=== PATIENT | female | born 1950 | race American Indian/Alaskan Native ===

== ENCOUNTER → 2016-04-02 | Outpatient (CLI) | payer MEDICARE, OTHER ==
--- NOTE | 2016-04-02 10:14 | CR ---
EXAMINATION: Right knee HISTORY: Artificial joint COMPARISON: 09/18/2015 TECHNIQUE: 3 views FINDINGS/IMPRESSION: Right total knee hardware is demonstrated in stable position and alignment. No fracture or acute osseous abnormality. No joint effusion.
== END | disposition home or self-care (01) ==
LOC: MW.CHORTHO 07:57
PROVIDERS: ATTEND Orthopaedic Surgery
DX: Z47.1 Aftercare following joint replacement surgery (principal); Z96.651 Presence of right artificial knee joint
CPT/HCPCS: 73562; G0463

== ENCOUNTER → 2016-06-04 | Outpatient (CLI) | payer MEDICARE, OTHER ==
--- NOTE | 2016-06-04 15:15 | US ---
EXAMINATION: Carotid US with newman scale and duplex imaging. HISTORY: Obstruction FINDINGS: Ultrasound examination of bilateral cervical carotid arteries was performed using newman scale and dup riky imaging. There are scattered atheromatous plaque noted within the carotid arteries bilaterally, most prominent at the right bulb. Antegrade flow is noted within the vertebrals.. These are the peak velocities in cm per second (systole), right and left respectively, by a comma: CCA (common carotid artery) - 83, 94 ICA (internal carotid artery) - 141, 99 ECA (External carotid artery) - 152, 123 ICA/CCA systolic ratio Right - 1.4 Left - 1.1 IMPRESSION: 1. There is approximately 50-69% stenosis within the proximal right ICA. 2. There is less than 50% stenosis within the left internal carotid artery.
== END ==
LOC: MW.US 09:53
PROVIDERS: ATTEND Family Medicine
DX: I65.23 Occlusion and stenosis of bilateral carotid arteries (principal)
CPT/HCPCS: 93880; 93880-26

== ENCOUNTER 2016-07-17 10:16 | Observation (INO) | payer MEDICARE, OTHER ==
[2016-07-17] MEDS ORDERED: Aspirin 81 MG Tab.Chew PO ONE (10:27)
[2016-07-17] MEDS ORDERED: Famotidine 20 MG/2 ML SDV IVPUSH ONE (10:27)
[2016-07-17] MEDS ORDERED: Sodium Chloride 0.9% 10 ML Syringe FLUSH PRN (10:27)
[2016-07-17] MEDS ORDERED: Sodium Chloride 0.9% 2.5 ML Syringe FLUSH PRN (10:27)
[2016-07-17] MEDS ORDERED: Ketorolac 30 MG/ML SDV IVPUSH ONE (10:27)
[2016-07-17] MEDS ORDERED: Alum Hydrox/Mag Hydrox/Simeth 15 ML, Metoclopramide 5 MG, Lidocaine 2% 5 ML PO ONE ×3 (10:27)
--- NOTE | 2016-07-17 10:52 | EDM.PDOC ---
ED HPI GENERAL MEDICAL PROBLEM - General Chief Complaint: Cardiovascular Problem Stated Complaint: DIPHRESES Time Seen by Provider: 07/17/16 10:25 Source of Information: Reports: Patient History Limitations: Reports: No Limitations - History of Present Illness INITIAL COMMENTS - FREE TEXT/NARRATIVE: History of present illness: [65-year-old female presenting with acute onset of dizziness, diaphoresis, and general feelings of lightheadedness. Patient denies any exertion indicates she was only taking grandchild and for his immunizations when the sensation over came her and she felt she needed to be evaluated.] Review of systems: As per history of present illness and below otherwise all systems reviewed and negative. Past medical history: As per history of present illness and as reviewed below otherwise noncontributory. Surgical history: As per history of present illness and as reviewed below otherwise noncontributory. Social history: No reported history of drug or alcohol abuse. Family history: As per history of present illness and as reviewed below otherwise noncontributory. Physical exam: HEENT: Atraumatic, normocephalic, pupils reactive, negative for conjunctival pallor or scleral icterus, mucous membranes moist, throat clear, neck supple, nontender, trachea midline. Lungs: Clear to auscultation, breath sounds equal bilaterally, chest nontender. Heart: S1S2, regular, negative for clicks, rubs, or JVD. Abdomen: Soft, nondistended, nontender. Negative for masses or hepatosplenomegaly. Negative for costovertebral tenderness. Pelvis: Stable nontender. Genitourinary: Deferred. Rectal: Deferred. Extremities: Atraumatic, negative for cords or calf pain. Neurovascular unremarkable. Neuro: Awake, alert, oriented. Cranial nerves II through XII unremarkable. Cerebellum unremarkable. Motor and sensory unremarkable throughout. Exam nonfocal. Upon exam patient resting quietly in bed. Patient is no longer pale and/or diaphoretic she indicates that she feels much better now but she still is concerned about what has transpired that would make her feel this way. Patient has an old carotid ultrasound on file shows that she had 50-60% stenosis of the right ICA with less than 50% on the left ICA CTA of chest negative, CT of head negative Will admit to observation status with telemetry Diagnostics: [CBC, CMP, troponin, EKG, chest x-ray] Therapeutics: [IV lock] Impression: [Dizziness, diaphoresis] Plan: [Admit observation] Definitive disposition and diagnosis as appropriate pending reevaluation and review of above. - Related Data Allergies Allergy/AdvReac Type Severity Reaction Status Date / Time griseofulvin Allergy Cannot Verified 07/17/16 10:25 Remember ibuprofen Allergy causes Verified 07/17/16 10:25 gastric ulcers ramipril Allergy Cough Verified 07/17/16 10:25 Home Meds: Home Meds Ezetimibe/Simvastatin [Vytorin 10-40 mg Tablet] 1 each PO BEDTIME 09/12/13 [ History] FLUoxetine HCl [Fluoxetine HCl] 20 mg PO Q2D 09/12/13 [History] Hydrochlorothiazide 25 mg PO DAILY 09/12/13 [History] Ondansetron [Zofran ODT] 4 mg PO Q8HR PRN 09/12/13 [History] Telmisartan [Micardis] 80 mg PO DAILY 09/12/13 [History] Travoprost (Benzalkonium) [Travoprost 0.004% Eye Drop] 1 drop EYEBOTH BEDTIME [History] RABEprazole Sodium [Aciphex] 20 mg PO DAILY 03/28/15 [History] Gabapentin [Neurontin] 300 mg PO BEDTIME #45 cap 04/03/15 [Rx] Aspirin 81 mg PO DAILY 07/17/16 [History] Past Medical History HEENT History: Reports: Glaucoma, Impaired Vision Cardiovascular History: Reports: High Cholesterol, Hypertension Respiratory History: Reports: None Gastrointestinal History: Reports: GERD Other Gastrointestinal History: gastric ulcers caused from NSAIDS, had a blood transfusion from a bleeding ulcer. gerd-controlled. 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 Neurological History: Reports: None Psychiatric History: Reports: Depression Endocrine/Metabolic History: Reports: Obesity/BMI 30+ Hematologic History: Reports: Anemia, Blood Transfusion(s) Immunologic History: Reports: None Oncologic (Cancer) History: Reports: None Dermatologic History: Reports: None - Infectious Disease History Infectious Disease History: Reports: Chicken Pox - Past Surgical History Head Surgeries/Procedures: Reports: None Musculoskeletal Surgical History: Reports: Other (See Below) Social & Family History - Family History Family Medical History: Noncontributory HEENT: Reports: Cataract, Glaucoma Endocrine/Metabolic: Reports: Diabetes, type II Oncologic: Reports: Other (See Below) Other Oncologic Family History: mouth - Tobacco Use Smoking Status *Q: Never Smoker - Caffeine Use Caffeine Use: Reports: None - Alcohol Use Days Per Week of Alcohol Use: 0 Number of Drinks Per Day: 0 Total Drinks Per Week: 0 - Recreational Drug Use Recreational Drug Use: No Drug Use in Last 12 Months: No ED ROS GENERAL - Review of Systems Review Of Systems: See Below (See history of present illness) ED EXAM, GENERAL - Physical Exam Exam: See Below (History of present illness) Course - Vital Signs Last Recorded V/S: Last Vital Signs Temp 35.9 C 07/17/16 10:22 Pulse 68 07/17/16 14:00 Resp 18 07/17/16 14:00 BP 150/87 H 07/17/16 14:00 Pulse Ox 98 07/17/16 14:00 - Orders/Labs/Meds Orders: Active Orders 24 hr Category Date Time Status Cardiac Monitoring [RC] . DIRECTED Care 07/17/16 10:27 Active EKG Documentation Completion [RC] STAT Care 07/17/16 10:27 Active UA W/MICROSCOPIC [URIN] Stat Lab 07/17/16 10:27 Uncollected Sodium Chloride 0.9% [Saline Flush] Med 07/17/16 10:27 Active 10 ml FLUSH ASDIRECTED PRN Sodium Chloride 0.9% [Saline Flush] Med 07/17/16 10:27 Active 2.5 ml FLUSH ASDIRECTED PRN Saline Lock Insert [OM.PC] Stat Oth 07/17/16 10:27 Ordered Medication Orders Sodium Chloride (Saline Flush) 10 ml FLUSH ASDIRECTED PRN PRN Reason: Keep Vein Open Last Admin: 07/17/16 10:49 Dose: 10 ml Sodium Chloride (Saline Flush) 2.5 ml FLUSH ASDIRECTED PRN PRN Reason: Keep Vein Open Last Admin: 07/17/16 10:48 Dose: 2.5 ml Labs: Laboratory Tests 07/17/16 07/17/16 07/17/16 Range/Units 10:20 10:20 10:20 WBC 7.03 (4.0-11.0) K/uL RBC 5.12 (4.30-5.90) M/uL Hgb 13.9 (12.0-16.0) g/dL Hct 41.2 (36.0-46.0) % MCV 80.5 (80.0-98.0) fL MCH 27.1 (27.0-32.0) pg MCHC 33.7 (31.0-37.0) g/dL RDW Std Deviation 44.2 (28.0-62.0) fl RDW Coeff of Jeff 15 (11.0-15.0) % Plt Count 296 (150-400) K/uL MPV 10.90 (7.40-12.00) fL Neut % (Auto) 61.1 (48.0-80.0) % Lymph % (Auto) 25.2 (16.0-40.0) % [place] % (Auto) 10.2 (0.0-15.0) % Eos % (Auto) 3.4 (0.0-7.0) % Baso % (Auto) 0.1 (0.0-1.5) % Neut # (Auto) 4.3 (1.4-5.7) K/uL Lymph # (Auto) 1.8 (0.6-2.4) K/uL [place] # (Auto) 0.7 (0.0-0.8) K/uL Eos # (Auto) 0.2 (0.0-0.7) K/uL Baso # (Auto) 0.0 (0.0-0.1) K/uL Nucleated RBC % 0.0 /100WBC Nucleated RBCs # 0 K/uL INR 1.00 (0.86-1.11) D-Dimer, Quantitative 0.62 H (0.0-0.52) mg/LFEU Sodium 141 (136-146) mmol/L Potassium 3.6 (3.5-5.1) mmol/L Chloride 110 (98-110) mmol/L Carbon Dioxide 19 L (21-31) mmol/L BUN 15 (6.0-23.0) mg/dL Creatinine 0.8 (0.6-1.5) mg/dL Est Cr Clr Drug Dosing 53.97 mL/min Estimated GFR (MDRD) > 60.0 ml/min Glucose 102 (60-110) mg/dL Calcium 9.2 (8.8-10.8) mg/dL Total Bilirubin 0.5 (0.1-1.5) mg/dL AST 24 (5-40) IU/L ALT 21 (8-54) IU/L Alkaline Phosphatase 99 (40-150) Troponin I (0.0-0.29) NG/ML Total Protein 7.2 (6.0-8.0) g/dL Albumin 4.5 (3.4-4.8) g/dL Globulin 2.7 (2.0-3.5) g/dL Albumin/Globulin Ratio 1.7 (1.3-2.8) Amylase 80 (10-90) U/L Lipase 34 (7-80) U/L 05// Range/Units 10:20 WBC (4.0-11.0) K/uL RBC (4.30-5.90) M/uL Hgb (12.0-16.0) g/dL Hct (36.0-46.0) % MCV (80.0-98.0) fL MCH (27.0-32.0) pg MCHC (31.0-37.0) g/dL RDW Std Deviation (28.0-62.0) fl RDW Coeff of Jeff (11.0-15.0) % Plt Count (150-400) K/uL MPV (7.40-12.00) fL Neut % (Auto) (48.0-80.0) % Lymph % (Auto) (16.0-40.0) % [place] % (Auto) (0.0-15.0) % Eos % (Auto) (0.0-7.0) % Baso % (Auto) (0.0-1.5) % Neut # (Auto) (1.4-5.7) K/uL Lymph # (Auto) (0.6-2.4) K/uL [place] # (Auto) (0.0-0.8) K/uL Eos # (Auto) (0.0-0.7) K/uL Baso # (Auto) (0.0-0.1) K/uL Nucleated RBC % /100WBC Nucleated RBCs # K/uL INR (0.86-1.11) D-Dimer, Quantitative (0.0-0.52) mg/LFEU Sodium (136-146) mmol/L Potassium (3.5-5.1) mmol/L Chloride (98-110) mmol/L Carbon Dioxide (21-31) mmol/L BUN (6.0-23.0) mg/dL Creatinine (0.6-1.5) mg/dL Est Cr Clr Drug Dosing mL/min Estimated GFR (MDRD) ml/min Glucose (60-110) mg/dL Calcium (8.8-10.8) mg/dL Total Bilirubin (0.1-1.5) mg/dL AST (5-40) IU/L ALT (8-54) IU/L Alkaline Phosphatase (40-150) Troponin I < 0.10 (0.0-0.29) NG/ML Total Protein (6.0-8.0) g/dL Albumin (3.4-4.8) g/dL Globulin (2.0-3.5) g/dL Albumin/Globulin Ratio (1.3-2.8) Amylase (10-90) U/L Lipase (7-80) U/L Meds: Medications Generic Name Dose Route Start Last Admin Trade Name Freq PRN Reason Stop Dose Admin Sodium Chloride 10 ml 07/17/16 10:07/17/16 10:49 Saline Flush FLUSH 10 ml ASDIRECTED PRN Administration Keep Vein Open Sodium Chloride 2.5 ml 07/17/16 10:07/17/16 10:48 Saline Flush FLUSH 2.5 ml ASDIRECTED PRN Administration Keep Vein Open Discontinued Medications Generic Name Dose Route Start Last Admin Trade Name Freq PRN Reason Stop Dose Admin Aspirin 324 mg 07/17/16 10:07/17/16 10:46 Aspirin PO 07/17/16 10:28 324 mg ONETIME ONE Administration Al Hydroxide/Mg Hydroxide 15 0 ml 07/17/16 10:07/17/16 10:46 ml/ Metoclopramide HCl 5 mg/ PO 07/17/16 10:28 1 each Lidocaine HCl 5 ml ONETIME ONE Administration Famotidine 20 mg 07/17/16 10:07/17/16 10:46 Pepcid IVPUSH 07/17/16 10:28 20 mg ONETIME ONE Administration Ketorolac Tromethamine 30 mg 07/17/16 10:07/17/16 10:52 Toradol IVPUSH 07/17/16 10:28 Not Given ONETIME ONE Departure - Departure Time of Disposition: 15:29 Disposition: Admitted As Inpatient 64 Condition: good Clinical Impression: Diaphoresis, Dizziness Forms: ED Department Discharge - My Orders Last 24 Hours: My Active Orders 07/17/16 10:27 Cardiac Monitoring [RC] . DIRECTED EKG Documentation Completion [RC] STAT UA W/MICROSCOPIC [URIN] Stat Sodium Chloride 0.9% [Saline Flush] 10 ml FLUSH ASDIRECTED PRN Sodium Chloride 0.9% [Saline Flush] 2.5 ml FLUSH ASDIRECTED PRN Saline Lock Insert [OM.PC] Stat - Assessment/Plan Last 24 Hours: My Active Orders 07/17/16 10:27 Cardiac Monitoring [RC] . DIRECTED EKG Documentation Completion [RC] STAT UA W/MICROSCOPIC [URIN] Stat Sodium Chloride 0.9% [Saline Flush] 10 ml FLUSH ASDIRECTED PRN Sodium Chloride 0.9% [Saline Flush] 2.5 ml FLUSH ASDIRECTED PRN Saline Lock Insert [OM.PC] Stat
--- NOTE | 2016-07-17 11:13 | CR ---
EXAMINATION: Two-view chest (PA and Lateral views). HISTORY: Chest pain. FINDINGS: The trachea is midline. The cardiomediastinal silhouette is within normal limits. No pulmonary infil trates, effusions or pneumothorax. Osseous structures appear unremarkable. IMPRESSION: No acute cardiopulmonary process.
[2016-07-17 11:16] LABS: CHLORIDE,CL 110 mmol/L (98-110); SODIUM,NA 141 mmol/L (136-146)
--- NOTE | 2016-07-17 14:15 | CT ---
EXAMINATION: CTA chest HISTORY: Syncope COMPARISON: Radiographs from the same day TECHNIQUE: Axial CT images obtained through the chest following the administration of 50 mL of Isovu e-370 in the right forearm. Coronal and sagittal reconstructions obtained. FINDINGS: The lungs are clear without focal consolidation. No pleural effusion or pneumothorax. The heart is normal in size without a pericardial effusion. Coronary artery calcifications are noted. Th e thoracic aorta is normal in caliber. The main and central pulmonary arteries are patent. No pulmon louis embolism identified. No mediastinal or hilar lymphadenopathy. There is a small to moderate hiata l hernia. No axillary lymphadenopathy. The visualized images of the upper abdomen appear unremarkabl e. No suspicious osseous abnormalities identified. IMPRESSION: 1. No acute cardiopulmonary findings. 2. Small to moderate hiatal hernia.
--- NOTE | 2016-07-17 15:16 | CT ---
EXAMINATION: Non contrast CT head. Coronal and sagittal reformats. HISTORY: Syncope FINDINGS: No evidence of intra or extra axial hemorrhage, mass, midline shift, hydrocephalus or edema. No hypoattenuation changes in the major vascular territories to suggest acute infarct. No abnormal intracranial calcifications are detected. No evidence of substantial vascular calcifica tions. Paranasal sinuses and mastoid air cells are well aerated without substantial findings. Orbits and g lobes are symmetric. Pituitary fossa appears unremarkable. Calvarium is intact. No evidence of skull fracture. IMPRESSION: No acute intracranial findings.
[2016-07-17] MEDS ORDERED: Acetaminophen 325 MG Tab PO PRN (17:49)
--- NOTE | 2016-07-17 18:55 | PCM.HP ---
H&P History of Present Illness - General Date of Service: 07/17/16 Admit Problem/Dx: Dizziness, Lightheadedness - History of Present Illness Initial Comments - Free Text/Narative: 65 yo fm with history of HTN, Hypercholesterolemia OA of Knees and bleeding ulcer requiring transfusion in 1999 was admitted to observation for episode of dizziness. Episode occurred earlier today while she was taking her grandson to our hospital clinic for shots. She was walking in the hallway and felt dizzy and lightheaded like she was about to pass out. She grabbed onto her grandson for support and then sat down in a chair. The dizziness resolved after about 15 minutes and patient felt much better but clinic staff recommended she be taken to the ED for further evaluation. Patient states that this is the first time she had ever had this happen to her. She normally takes HCTZ and Telmisartan for HTN but she forgot to take them this morning. She denied any chest pain or shortness of breath during or after the dizziness. She has not been sick recently or had any changes in her medications. She had toast and eggs about 1 hour before the episode. She does not smoke tobacco or use alcohol. She had a stress test done last year that she states was normal. Her family history is significant for CAD in her son who ended up needing 7 vessel CABG at 46 years old. She states that her son had several tests performed by several physicians including EKG's and stress tests on him that all came out normal and he never had any cardiac symptoms but her pcp insisted she get a second opinion. He was then referred to Dr. Sarmiento in [place] who decided to perform an angiogram that revealed 7 vessel block for which he needed the CABG. While in the ED patient had EKG done that revealed RBBB with possible RAD. Her Toponin was negative. Her D-Dimer was slightly elevated to 0.62. She had CXR, CT Head and CT Angiogram done and all revealed no acute changes. She was given Aspirin, Pepcid and Toradol. She was then admitted to the floor for observation. Since being on the floor patient has been doing well and is requesting to be sent home as early as possible. She denies any recent episodes of chest pain, sob, dizziness, lightheadedness, numbness or tingling. She does admit to maybe feeling more sob with activity than usual but she attributes that to it being summertime and her performing more yard work. If follow-up with Cardiology is needed she would like to have her appointment be set up with Dr. Sarmiento. - Related Data Allergies/Adverse Reactions: Allergies Allergy/AdvReac Type Severity Reaction Status Date / Time griseofulvin Allergy Cannot Verified 07/17/16 10:25 Remember ibuprofen Allergy causes Verified 07/17/16 10:25 gastric ulcers ramipril Allergy Cough Verified 07/17/16 10:25 Home Medications: Home Meds Ezetimibe/Simvastatin [Vytorin 10-40 mg Tablet] 1 each PO BEDTIME 09/12/13 [ History] FLUoxetine HCl [Fluoxetine HCl] 20 mg PO DAILY 09/12/13 [History] Hydrochlorothiazide 25 mg PO DAILY 09/12/13 [History] Telmisartan [Micardis] 80 mg PO DAILY 09/12/13 [History] Travoprost (Benzalkonium) [Travoprost 0.004% Eye Drop] 1 drop EYEBOTH BEDTIME [History] RABEprazole Sodium [Aciphex] 20 mg PO DAILY 03/28/15 [History] Aspirin 81 mg PO BEDTIME 07/17/16 [History] Past Medical History HEENT History: Reports: Glaucoma, Impaired Vision Cardiovascular History: Reports: High Cholesterol, Hypertension Respiratory History: Reports: None Gastrointestinal History: Reports: GERD Other Gastrointestinal History: gastric ulcers caused from NSAIDS, had a blood transfusion from a bleeding ulcer. gerd-controlled. 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 Neurological History: Reports: None Psychiatric History: Reports: Depression Endocrine/Metabolic History: Reports: Obesity/BMI 30+ Hematologic History: Reports: Anemia, Blood Transfusion(s) Immunologic History: Reports: None Oncologic (Cancer) History: Reports: None Dermatologic History: Reports: None - Infectious Disease History Infectious Disease History: Reports: Chicken Pox - Past Surgical History Head Surgeries/Procedures: Reports: None HEENT Surgical History: Reports: None Cardiovascular Surgical History: Reports: None Respiratory Surgical History: Reports: None Female Surgical History: Reports: None Musculoskeletal Surgical History: Reports: Other (See Below) Social & Family History - Family History Family Medical History: Noncontributory HEENT: Reports: Cataract, Glaucoma Cardiac: Reports: None Endocrine/Metabolic: Reports: Diabetes, type II Hematologic: Reports: None Dermatologic: Reports: None Oncologic: Reports: Other (See Below) Other Oncologic Family History: mouth - Tobacco Use Smoking Status *Q: Never Smoker Second Hand Smoke Exposure: No - Caffeine Use Caffeine Use: Reports: None - Alcohol Use Days Per Week of Alcohol Use: 0 Number of Drinks Per Day: 0 Total Drinks Per Week: 0 - Recreational Drug Use Recreational Drug Use: No Drug Use in Last 12 Months: No H&P Review of Systems - Review of Systems: Review Of Systems: See Below General: Reports: No Symptoms HEENT: Reports: No Symptoms Pulmonary: Reports: No Symptoms Cardiovascular: Reports: Dyspnea on Exertion Gastrointestinal: Reports: No Symptoms Genitourinary: Reports: No Symptoms Musculoskeletal: Reports: No Symptoms Skin: Reports: No Symptoms Psychiatric: Reports: No Symptoms Neurological: Reports: No Symptoms Hematologic/Lymphatic: Reports: No Symptoms Immunologic: Reports: No Symptoms Exam - Exam Exam: See Below - Vital Signs Vital Signs: Last Vital Signs Temp 36.1 C 07/17/16 16:15 Pulse 70 07/17/16 16:15 Resp 17 07/17/16 16:15 BP 123/75 07/17/16 16:15 Pulse Ox 97 07/17/16 16:15 Weight: 75 kg - Exam General: Alert, Oriented, 4 HEENT: Conjunctiva Clear, EACs Clear, EOMI, Hearing Intact, Mucosa Moist & [place] , PERRLA Neck: Supple, Trachea Midline, 2 Lungs: Clear to Auscultation, Normal Respiratory Effort Cardiovascular: Regular Rate, Regular Rhythm, Diastolic Murmur Abdomen: Normal Bowel Sounds, Soft Back Exam: Normal Inspection, Full Range of Motion, NT Extremities: 3, Normal Inspection, 10 Peripheral Pulses: 2+: Dorsalis Pedis (L), Dorsalis Pedis (R) Skin: Warm, Dry, Intact Neurological: Cranial Nerves Intact, Reflexes Equal Bilateral Neuro Extensive - Mental Status: Alert, Oriented x3, Normal Mood/Affect, Normal Cognition Psychiatric: Alert, Normal Affect, Normal Mood - Patient Data Result Diagrams: 07/17/16 10:20 07/17/16 10:20 *Q Meaningful Use (ADM) - VTE *Q VTE Criteria *Q: - Stroke *Q Stroke Criteria *Q: - AMI *Q AMI Criteria *Q: Problem List Initiated/Reviewed/Updated: Yes Orders Last 24hrs: Active Orders 24 hr Category Date Time Status Patient Status [ADT] Routine ADT 07/17/16 17:49 Active Antiembolic Devices [RC] PER UNIT ROUTINE Care 07/17/16 17:54 Active Intake and Output [RC] QSHIFT Care 07/17/16 17:52 Active Oxygen Therapy [RC] PRN Care 07/17/16 17:49 Active Up ad [place] [RC] ASDIRECTED Care 07/17/16 17:49 Active VTE/DVT Education [RC] PER UNIT ROUTINE Care 07/17/16 17:49 Active Vital Signs [RC] Q4H Care 07/17/16 17:49 Active PT Evaluation and Treatment [CONS] Routine Cons 07/17/16 17:49 Active Regular Diet [DIET] Diet 07/17/16 Dinner Active BASIC METABOLIC PANEL,BMP [CHEM] AM Lab 07/18/16 05:11 Ordered BASIC METABOLIC PANEL,BMP [CHEM] AM Lab 07/19/16 05:11 Ordered BASIC METABOLIC PANEL,BMP [CHEM] AM Lab 07/20/16 05:11 Ordered BASIC METABOLIC PANEL,BMP [CHEM] AM Lab 07/21/16 05:11 Ordered BASIC METABOLIC PANEL,BMP [CHEM] AM Lab 07/22/16 05:11 Ordered CBC WITH AUTO DIFF [HEME] AM Lab 07/18/16 05:11 Ordered CBC WITH AUTO DIFF [HEME] AM Lab 07/19/16 05:11 Ordered CBC WITH AUTO DIFF [HEME] AM Lab 07/20/16 05:11 Ordered CBC WITH AUTO DIFF [HEME] AM Lab 07/21/16 05:11 Ordered CBC WITH AUTO DIFF [HEME] AM Lab 07/22/16 05:11 Ordered Acetaminophen [Tylenol] Med 07/17/16 17:49 Ordered 650 mg PO Q4H PRN Sequential Compression Device [OM.PC] Per Unit Routine Oth 07/17/16 17:52 Ordered Resuscitation Status Routine Resus Stat 07/17/16 17:49 Ordered Medication Orders Acetaminophen (Tylenol) 650 mg PO Q4H PRN PRN Reason: Pain (Mild 1-3)/fever Sodium Chloride (Saline Flush) 10 ml FLUSH ASDIRECTED PRN PRN Reason: Keep Vein Open Last Admin: 07/17/16 10:49 Dose: 10 ml Sodium Chloride (Saline Flush) 2.5 ml FLUSH ASDIRECTED PRN PRN Reason: Keep Vein Open Last Admin: 07/17/16 10:48 Dose: 2.5 ml Assessment/Plan Comment:: Assessment: 65 year old fm with history of HTN & Hypercholesterolemia admitted for Dizziness & lightheadedness. Vitals stable except for mild HTN secondary to not taking morning medications. Exam reveals Diastolic Murmur, otherwise unremarkable. EKG revealed RBBB with RAD. Troponin negative. CXR/CTA/CT Head all negative. Patient currently doing well with no complaints Plan: 1. Admit for observation 2. Telemetry 3. resume home meds - Telmisartan, HCTZ, Vytorin, Aspirin, Fluoxetine, Gabapentin 4. trend Troponin for total 3 sets taken 8 hours apart 5. Orthostatic vital signs 6. Order CBC, BMP & Magnesium in AM 7. DVT Prophylaxis: SCD's 8. If patient is in good condition for discharge tomorrow we will try to arrange for her follow-up with Dr. Jackson, PCP and Dr. Sarmiento, Cadiologist. Due to it being weekend we may just be able to send her records and she will likely have to call on weekday to arrange appointment.
[2016-07-17] MEDS ORDERED: Hydrochlorothiazide 25 MG Tab PO SCH (19:45)
[2016-07-17] MEDS ORDERED: Simvastatin 40 MG Tab PO SCH (21:00)
[2016-07-17] MEDS ORDERED: Ezetimibe 10 MG Tab PO SCH (21:00)
[2016-07-18 05:34] LABS: CHLORIDE,CL 111 mmol/L (98-110); SODIUM,NA 143 mmol/L (136-146)
[2016-07-18 08:43] VITALS: BP 111/64
[2016-07-18] MEDS ORDERED: FLUoxetine 20 MG Cap PO SCH (09:00)
[2016-07-18] MEDS ORDERED: TRAVOPROST 0.004% EYEBOTH SCH (21:00)
[2016-07-18] MEDS ORDERED: EYE EYEBOTH SCH (21:00)
--- NOTE | 2016-07-19 04:06 | PCM.DCSUM1 ---
Discharge Summary - Hospital Course Free Text/Narrative:: Patient with history of HTN and Hypercholesterolemia was admitted for observation on 07/17 after experiencing episode of dizziness while walking. In the ED her EKG showed NSR with RBB. Her Troponin as negative D-Dimer was mildly elevated. She had CXR/CT Head/CT Angiogram done and all were negative. Overnight monitoring did not reveal any abnormalities, her vitals were stable and labs were normal. Troponin was trended which was negative. Telemetry was consistent with NSR with RBBB. Her dizziness did not recur. Her exam was notable for a faint diastolic murmur. Only pertinent finding on ROS was mild increased SOB with activities such a working in her garden. Patient was informed taht she would need to have follow-up with wildland fire fighter specialist. Patient requested to have her cardiology follow-up with Dr. Sarmiento since he was her sons physician and was able to find 7 vessel blockage needeng CABG. Her son was 46 years old and asymptomatic at the time and few other physicians told him that his heart was okay but it was Dr. Sarmiento who looked deeper and found a reason for Angiogram that revealed the 7 vessel block. For this reason patient wanted to see him for the Cardiology f/u. We informed the patient that we cannot guarrantee apointment but we would indeed send over our notes and she can call to schedule appointment. She was also informed to call Dr. Crenshaw, PCP to schedule gappointment. PAtient was given my information and instructed to follow -up at my clinic if she is unable to get an appointment with either of the physicians within 2 weeks. No changes to her meications were made. - Discharge Data Discharge Date: 07/18/16 Discharge Disposition: Home, Self-Care 01 Condition: Good - Patient Instructions Diet: Usual Diet as Tolerated, Low Sodium Activity: As Tolerated Notify Provider of: Increased Pain, Swelling and Redness - Discharge Plan Home Medications: Home Meds Ezetimibe/Simvastatin [Vytorin 10-40 mg Tablet] 1 each PO BEDTIME 09/12/13 [ History] FLUoxetine HCl [Fluoxetine HCl] 20 mg PO DAILY 09/12/13 [History] Hydrochlorothiazide 25 mg PO DAILY 09/12/13 [History] Telmisartan [Micardis] 80 mg PO DAILY 09/12/13 [History] Travoprost (Benzalkonium) [Travoprost 0.004% Eye Drop] 1 drop EYEBOTH BEDTIME [History] RABEprazole Sodium [Aciphex] 20 mg PO DAILY 03/28/15 [History] Aspirin 81 mg PO BEDTIME 07/17/16 [History] Patient Handouts: Dizziness, [id number] - Discharge Summary/Plan Comment DC Time >30 min.: No Discharge Summary/Plan Comment: 1. Patient is to contact Processor Grain Dr. Sarmiento's office on Wednesday/Wednesday to schedule appointment 2. Patient is to contact PCP Dr. Jackson's office on Wednesday/Wednesday to schedule appointment. - Patient Data Vitals - Most Recent: Last Vital Signs Temp 36.6 C 07/18/16 08:00 Pulse 84 07/18/16 08:00 Resp 16 07/18/16 08:00 BP 111/64 07/18/16 08:00 Pulse Ox 94 L 07/18/16 08:00 Weight - Most Recent: 75 kg Lab Results - Last 24 hrs: Laboratory Results - last 24 hr 07/18/16 07/18/16 07/18/16 Range/Units 03:20 05:07 05:07 WBC 5.78 (4.0-11.0) K/uL RBC 4.84 (4.30-5.90) M/uL Hgb 13.1 (12.0-16.0) g/dL Hct 39.2 (36.0-46.0) % MCV 81.0 (80.0-98.0) fL MCH 27.1 (27.0-32.0) pg MCHC 33.4 (31.0-37.0) g/dL RDW Std Deviation 44.8 (28.0-62.0) fl RDW Coeff of Jeff 15 (11.0-15.0) % Plt Count 287 (150-400) K/uL MPV 10.60 (7.40-12.00) fL Neut % (Auto) 58.3 (48.0-80.0) % Lymph % (Auto) 26.0 (16.0-40.0) % [place] % (Auto) 10.7 (0.0-15.0) % Eos % (Auto) 4.7 (0.0-7.0) % Baso % (Auto) 0.3 (0.0-1.5) % Neut # (Auto) 3.4 (1.4-5.7) K/uL Lymph # (Auto) 1.5 (0.6-2.4) K/uL [place] # (Auto) 0.6 (0.0-0.8) K/uL Eos # (Auto) 0.3 (0.0-0.7) K/uL Baso # (Auto) 0.0 (0.0-0.1) K/uL Nucleated RBC % 0.0 /100WBC Nucleated RBCs # 0 K/uL Sodium 143 (136-146) mmol/L Potassium 3.8 (3.5-5.1) mmol/L Chloride 111 H (98-110) mmol/L Carbon Dioxide 22 (21-31) mmol/L BUN 14 (6.0-23.0) mg/dL Creatinine 0.8 (0.6-1.5) mg/dL Est Cr Clr Drug Dosing 53.97 mL/min Estimated GFR (MDRD) > 60.0 ml/min Glucose 92 (60-110) mg/dL Calcium 8.8 (8.8-10.8) mg/dL Troponin I (0.0-0.29) NG/ML Urine Color YELLOW Urine Appearance HAZY Urine pH 6.5 (5.0-8.0) Ur Specific [place] 1.010 (1.001-1.035) Urine Protein NEGATIVE (NEGATIVE) mg/dL Urine Glucose (UA) NEGATIVE (NEGATIVE) mg/dL Urine Ketones NEGATIVE (NEGATIVE) mg/dL Urine Occult Blood TRACE-LYSED (NEGATIVE) Urine Nitrite NEGATIVE (NEGATIVE) Urine Bilirubin NEGATIVE (NEGATIVE) Urine Urobilinogen 0.2 (<2.0) EU/dL Ur Leukocyte Esterase TRACE (NEGATIVE) Urine RBC 0-2 (0-2/HPF) Urine WBC 0-3 (0-5/HPF) Ur Epithelial Cells OCCASIONAL (NONE-FEW) Urine Bacteria FEW (NEGATIVE) 07/18/16 Range/Units 05:07 WBC (4.0-11.0) K/uL RBC (4.30-5.90) M/uL Hgb (12.0-16.0) g/dL Hct (36.0-46.0) % MCV (80.0-98.0) fL MCH (27.0-32.0) pg MCHC (31.0-37.0) g/dL RDW Std Deviation (28.0-62.0) fl RDW Coeff of Jeff (11.0-15.0) % Plt Count (150-400) K/uL MPV (7.40-12.00) fL Neut % (Auto) (48.0-80.0) % Lymph % (Auto) (16.0-40.0) % [place] % (Auto) (0.0-15.0) % Eos % (Auto) (0.0-7.0) % Baso % (Auto) (0.0-1.5) % Neut # (Auto) (1.4-5.7) K/uL Lymph # (Auto) (0.6-2.4) K/uL [place] # (Auto) (0.0-0.8) K/uL Eos # (Auto) (0.0-0.7) K/uL Baso # (Auto) (0.0-0.1) K/uL Nucleated RBC % /100WBC Nucleated RBCs # K/uL Sodium (136-146) mmol/L Potassium (3.5-5.1) mmol/L Chloride (98-110) mmol/L Carbon Dioxide (21-31) mmol/L BUN (6.0-23.0) mg/dL Creatinine (0.6-1.5) mg/dL Est Cr Clr Drug Dosing mL/min Estimated GFR (MDRD) ml/min Glucose (60-110) mg/dL Calcium (8.8-10.8) mg/dL Troponin I < 0.10 (0.0-0.29) NG/ML Urine Color Urine Appearance Urine pH (5.0-8.0) Ur Specific [place] (1.001-1.035) Urine Protein (NEGATIVE) mg/dL Urine Glucose (UA) (NEGATIVE) mg/dL Urine Ketones (NEGATIVE) mg/dL Urine Occult Blood (NEGATIVE) Urine Nitrite (NEGATIVE) Urine Bilirubin (NEGATIVE) Urine Urobilinogen (<2.0) EU/dL Ur Leukocyte Esterase (NEGATIVE) Urine RBC (0-2/HPF) Urine WBC (0-5/HPF) Ur Epithelial Cells (NONE-FEW) Urine Bacteria (NEGATIVE) Med Orders - Current: Current Medications Discontinued Medications Acetaminophen (Tylenol) 650 mg PO Q4H PRN PRN Reason: Pain (Mild 1-3)/fever Aspirin (Aspirin) 324 mg PO ONETIME ONE Stop: 07/17/16 10:28 Last Admin: 07/17/16 10:46 Dose: 324 mg Al Hydroxide/Mg Hydroxide 15 ml/ Metoclopramide HCl 5 mg/Lidocaine HCl 5 ml 0 ml PO ONETIME ONE Stop: 07/17/16 10:28 Last Admin: 07/17/16 10:46 Dose: 1 each Ezetimibe (Zetia) 10 mg PO BEDTIME MARYLIN Last Admin: 07/17/16 20:33 Dose: 10 mg Famotidine (Pepcid) 20 mg IVPUSH ONETIME ONE Stop: 07/17/16 10:28 Last Admin: 07/17/16 10:46 Dose: 20 mg Fluoxetine HCl (Prozac) 20 mg PO Q48H [place] Fluoxetine HCl (Prozac) 10 mg PO Q48H [facility] Hydrochlorothiazide (Hydrochlorothiazide) 25 mg PO DAILY [facility] Last Admin: 07/17/16 20:32 Dose: 25 mg Ketorolac Tromethamine (Toradol) 30 mg IVPUSH ONETIME ONE Stop: 07/17/16 10:28 Last Admin: 07/17/16 10:52 Dose: Not Given Travoprost 0.004% (Eye Drop) 1 each EYEBOTH BEDTIME [place] Simvastatin (Zocor) 40 mg PO BEDTIME M[place]LIN Last Admin: 07/17/16 20:33 Dose: 40 mg Sodium Chloride (Saline Flush) 10 ml FLUSH ASDIRECTED PRN PRN Reason: Keep Vein Open Last Admin: 07/17/16 10:49 Dose: 10 ml Sodium Chloride (Saline Flush) 2.5 ml FLUSH ASDIRECTED PRN PRN Reason: Keep Vein Open Last Admin: 07/17/16 10:48 Dose: 2.5 ml Telmisartan (Micardis) 80 mg PO DAILY [facility] Last Admin: 07/17/16 20:36 Dose: 80 mg *Q Meaningful Use (DIS) - VTE *Q VTE Criteria *Q: - Stroke *Q Stroke Criteria *Q: - AMI *Q AMI Criteria *Q:
== END 2016-07-18 10:23 | disposition home or self-care (01) ==
LOC: MW.ED 10:16 → MW.MS 15:54
PROVIDERS: ADMIT Internal Medicine; ATTEND Internal Medicine
DX: I45.10 Unspecified right bundle-branch block (principal); I38 Endocarditis, valve unspecified; I10 Essential (primary) hypertension; E78.00 Pure hypercholesterolemia, unspecified; M17.0 Bilateral primary osteoarthritis of knee; K21.9 Gastro-esophageal reflux disease without esophagitis; M19.90 Unspecified osteoarthritis, unspecified site; F32.9 Major depressive disorder, single episode, unspecified; E66.9 Obesity, unspecified; Z82.49 Family history of ischemic heart disease and other diseases of the circulatory system; Z88.3 Allergy status to other anti-infective agents; Z88.6 Allergy status to analgesic agent; Z88.8 Allergy status to other drugs, medicaments and biological substances; Z79.82 Long term (current) use of aspirin; Z79.899 Other long term (current) drug therapy
CPT/HCPCS: 36415; 70450; 71020; 71275; 80048; 80053; 81001; 82150; 83690; 83735; 84484; 85025; 85379; 85610; 93005; 96374; 97161; 99285; A9270; G0378

== ENCOUNTER 2020-01-05 08:45 | Day surgery (SDC) | payer MEDICARE, OTHER ==
[~2020-01-05 08:45] MED LIST: Lactated Ringers 1,000 ML IV SCH
[2020-01-05] MEDS ORDERED: fentaNYL 100 MCG/2 ML SDV IVPUSH PRN (08:58)
[2020-01-05] MEDS ORDERED: Acetaminophen 1,000 MG in Premix Bag 1 BAG IV PRN (08:58)
[2020-01-05] MEDS ORDERED: Propofol 200 MG/20 ML SDV ONE (09:10)
[2020-01-05] MEDS ORDERED: Midazolam 1 MG/ML 2 ML SDV ONE (09:10)
[2020-01-05] MEDS ORDERED: fentaNYL 100 MCG/2 ML SDV ONE (09:10)
[2020-01-05] MEDS ORDERED: Ketorolac 30 MG/ML SDV ONE (09:11)
[2020-01-05] MEDS ORDERED: Ondansetron 4 MG/2 ML SDV ONE (09:11)
[2020-01-05] MEDS ORDERED: Lidocaine 2% 5 ML SDV ONE (09:11)
[2020-01-05] MEDS ORDERED: Glycopyrrolate 0.2 MG/ML SDV ONE (09:11)
--- NOTE | 2020-01-05 09:30 | PCM.PREANE ---
Preanesthetic Assessment - Anesthesia/Transfusion/Family Hx Anesthesia History: Prior Anesthesia Without Reaction Other Type of Anesthesia Reaction Comment: DENIES ANY PROBLEMS WITH ANESTHESIA Family History of Anesthesia Reaction: No Transfusion History: Prior Transfusion Without Reaction Intubation History: Unknown - Review of Systems General: No Symptoms Pulmonary: No Symptoms Cardiovascular: No Symptoms Gastrointestinal: No Symptoms Neurological: No Symptoms Other: Reports: None - Physical Assessment Height: 5 ft 0.6 in Weight: 83.007 kg ASA Class: 2 Mental Status: Alert & Oriented x3 Airway Class: Mallampati = 2 Dentition: Reports: Normal Dentition (loose tooth x1 at bottom front) Thyro-Mental Finger Breadths: 3 Mouth Opening Finger Breadths: 2 ROM/Head Extension: Full Lungs: Clear to Auscultation, Normal Respiratory Effort Cardiovascular: Regular Rate, Regular Rhythm - Allergies Allergies/Adverse Reactions: Allergies Allergy/AdvReac Type Severity Reaction Status Date / Time griseofulvin Allergy Cannot Verified 01/01/20 08:32 Remember ibuprofen Allergy causes Verified 01/01/20 08:32 gastric ulcers morphine Allergy Confusion Verified 01/01/20 08:32 ramipril Allergy Cough Verified 01/01/20 08:32 Sulfa (Sulfonamide Allergy Rash Verified 01/01/20 08:32 Antibiotics) - Blood Blood Available: No - Anesthesia Plan Pre-Op Medication Ordered: None - Acknowledgements Anesthesia Type Planned: General Anesthesia Pt an Appropriate Candidate for the Planned Anesthesia: Yes Alternatives and Risks of Anesthesia Discussed w Pt/Guardian: Yes Pt/Guardian Understands and Agrees with Anesthesia Plan: Yes PreAnesthesia Questionnaire HEENT History: Reports: Glaucoma, Impaired Vision Other HEENT History: wears glasses Cardiovascular History: Reports: High Cholesterol, Hypertension Respiratory History: Reports: None Gastrointestinal History: Reports: GERD Other Gastrointestinal History: gastric ulcers caused from NSAIDS, had a blood transfusion due to a bleeding ulcer. 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 Neurological History: Reports: None Psychiatric History: Reports: Depression Endocrine/Metabolic History: Reports: Obesity/BMI 30+ Hematologic History: Reports: Anemia, Blood Transfusion(s) Immunologic History: Reports: None Oncologic (Cancer) History: Reports: None Dermatologic History: Reports: None - Infectious Disease History Infectious Disease History: Reports: None - Past Surgical History Head Surgeries/Procedures: Reports: None HEENT Surgical History: Reports: None Cardiovascular Surgical History: Reports: None Respiratory Surgical History: Reports: None GI Surgical History: Reports: None Female Surgical History: Reports: D&C Endocrine Surgical History: Reports: None Neurological Surgical History: Reports: None Musculoskeletal Surgical History: Reports: Knee Replacement, Other (See Below) Other Musculoskeletal Surgeries/Procedures:: hx left partial knee replacement, right total knee replacement Oncologic Surgical History: Reports: None - SUBSTANCE USE Tobacco Use Status *Q: Never Tobacco User - HOME MEDS Home Medications: Home Meds Telmisartan [Micardis] 80 mg PO DAILY 09/12/13 [History] Travoprost (Benzalkonium) [Travoprost 0.004% Eye Drop] 1 drop EYEBOTH BEDTIME 09/12/13 [History] hydroCHLOROthiazide [Hydrochlorothiazide] 25 mg PO DAILY 09/12/13 [History] Aspirin 325 mg PO BEDTIME 07/17/16 [History] Brimonidine [Alphagan P 0.15% Ophth Soln] 1 drop EYEBOTH BID 01/01/20 [History] Ezetimibe [Zetia] 10 mg PO DAILY 01/01/20 [History] FLUoxetine HCl [Fluoxetine HCl] 20 mg PO ASDIRECTED 01/01/20 [History] FLUoxetine HCl [Fluoxetine] 10 mg PO ASDIRECTED 01/01/20 [History] Omeprazole 40 mg PO DAILY 01/01/20 [History] Vit A/Vit C/Vit E/Zinc/Copper [Preservision] 1 tab PO DAILY 01/01/20 [History] - CURRENT (IN HOUSE) MEDS Current Meds: Current Medications Fentanyl (Sublimaze) 50 mcg IVPUSH Q5M PRN PRN Reason: Pain Lactated Ringer's (Ringers, Lactated) 1,000 mls @ 100 mls/hr IV ASDIRECTED [place] Acetaminophen 1,000 mg/ Premix 100 mls @ 400 mls/hr IV ONETIME PRN PRN Reason: Pain Discontinued Medications Fentanyl (Sublimaze) Confirm Administered Dose 100 mcg .ROUTE .STK-MED ONE Stop: 01/05/20 09:11 Glycopyrrolate (Robinul) Confirm Administered Dose 0.2 mg .ROUTE .STK-MED ONE Stop: 01/05/20 09:12 Ketorolac Tromethamine (Toradol) Confirm Administered Dose 30 mg .ROUTE .STK-MED ONE Stop: 01/05/20 09:12 Lidocaine (Xylocaine-Mpf 2%) Confirm Administered Dose 5 ml .ROUTE .STK-MED ONE Stop: 01/05/20 09:12 Midazolam HCl (Versed 1 Mg/Ml) Confirm Administered Dose 2 mg .ROUTE .STK-MED ONE Stop: 01/05/20 09:11 Ondansetron HCl (Zofran) Confirm Administered Dose 4 mg .ROUTE .STK-MED ONE Stop: 01/05/20 09:12 Propofol (Diprivan 20 Ml) Confirm Administered Dose 200 mg .ROUTE .STK-MED ONE Stop: 01/05/20 09:11
[2020-01-05] MEDS ORDERED: Furosemide 40 MG/4 ML VIAL ONE (10:00)
[2020-01-05] MEDS ORDERED: Lidocaine 1% with EPINEPHrine 1:100,000 20 ML MDV ONE (10:50)
[2020-01-05] MEDS ORDERED: Bupivacaine 0.25% 10 ML SDV ONE ×2 (10:50→10:59)
[2020-01-05] MEDS ORDERED: Neomycin/Polymyxin B Bladder Irrigation 1 ML Amp ONE (10:50)
[2020-01-05] MEDS ORDERED: ceFAZolin 1 GM Vial ONE (10:52)
[2020-01-05] MEDS ORDERED: Sodium Chloride 0.9% 20 ML ONE (10:52)
[2020-01-05] MEDS ORDERED: Octyl 2-Cyanoacrylate 1 Tube ONE (12:13)
--- NOTE | 2020-01-05 12:43 | PCM.OPNOTE ---
- General Post-Op/Procedure Note Date of Surgery/Procedure: 01/05/20 Operative Procedure(s): posterior colporrhaphy and retropubic midurethral sling. Findings: 3rd degree rectocele with enterocele, urethral hypermobility, on cystoscopy, no evidence of trauma to the bladder mucosa. Pre Op Diagnosis: symptomatic rectocele, stress urinary incontinence Post-Op Diagnosis: Same Anesthesia Technique: General LMA Primary Surgeon: Shannan Garcia Secondary Surgeon: Adeel Aguirre Anesthesia Provider: Ladan Cummings Vehicle Modification Technician: Gregorio Talbot Pathology: none Fluid Replacement, Intraop: 1,500 EBL in mLs: 150 Drain/Tube Comments:: vaginal packing in place, wiseman catheter in place Complications: None Known Condition: Good
--- NOTE | 2020-01-05 16:09 | PCM.POSTAN ---
POST ANESTHESIA ASSESSMENT - MENTAL STATUS Mental Status: Alert, Oriented - VITAL SIGNS Vital Signs: Last Vital Signs Temp 36.2 C 01/05/20 12:47 Pulse 94 01/05/20 12:47 Resp 14 01/05/20 12:47 BP 120/56 L 01/05/20 12:47 Pulse Ox 95 01/05/20 12:47 - RESPIRATORY Respiratory Status: Respiratory Rate WNL, Airway Patent, O2 Saturation Stable - CARDIOVASCULAR CV Status: Pulse Rate WNL, Blood Pressure Stable - GASTROINTESTINAL GI Status: No Symptoms - PAIN Pain Score: 2 - POST OP HYDRATION Hydration Status: Adequate & Stable - OBSERVATIONS Free Text/Narrative:: Late entry for assessment performed at 1243
--- NOTE | 2020-01-05 16:11 | PCM48HPAN ---
Post Anesthesia Note - EVALUATION WITHIN 48HRS OF ANESTHETIC Vital Signs in Normal Range: Yes Patient Participated in Evaluation: Yes Respiratory Function Stable: Yes Airway Patent: Yes Cardiovascular Function Stable: Yes Hydration Status Stable: Yes (Taking PO without difficulty, denies nausea) Pain Control Satisfactory: Yes (Denies pain at rest, 3-4/10 with certain m ovements. Adequate control per pt) Nausea and Vomiting Control Satisfactory: Yes Mental Status Recovered: Yes Vital Signs: Last Vital Signs Temp 36.2 C 01/05/20 12:47 Pulse 94 01/05/20 12:47 Resp 14 01/05/20 12:47 BP 120/56 L 01/05/20 12:47 Pulse Ox 95 01/05/20 12:47 - COMMENTS/OBSERVATIONS Free Text/Narrative:: Late entry for assessment performed at 1555
[2020-01-05 16:23] VITALS: BP 130/64; PULSE 64
--- NOTE | 2020-01-05 19:45 | OR ---
SURGEON: Shannan Garcia M.D. DATE OF PROCEDURE: 01/05/2020 PREOPERATIVE DIAGNOSES: Stress urinary incontinence and symptomatic third-degree rectocele. POSTOPERATIVE DIAGNOSES: Stress urinary incontinence and symptomatic third-degree rectocele. PROCEDURE: Posterior colporrhaphy with enterocele repair and retropubic mid-urethral sling. PRIMARY SURGEON: Shannan Garcia MD. CAR JOCKEY: Adeel Aguirre MD. SECOND CAR JOCKEY: Mariaa Qureshi MD. ANESTHESIA: General LMA. ESTIMATED BLOOD LOSS: 150 mL. FLUIDS: 1500 mL crystalloid. FINDINGS: Third-degree rectocele with high enterocele, urethral hypermobility. Upon cystoscopy, there was no evidence of any trauma to the bladder mucosa. COMPLICATIONS: None known. DISPOSITION: Stable to Recovery. BRIEF HISTORY: This is a 69-year-old female. She comes with complaint of severe difficulty initiating bowel movements which she feels worsened her stress incontinence. She now has leaking with movement, standing, coughing, sneezing. Additionally, she has trouble initiating a bowel movement. On examination, she had a third- degree rectocele; however, good vault support from her prior hysterectomy. Cystoscopy was performed and I was concerned about her bladder sensation. She did have documented stress urinary incontinence with urethral hypermobility with what I felt was a possibility of intrinsic sphincter deficiency. Therefore, I did send her for consultation with a urogynecologist. He recommended proceeding with a retropubic mid-urethral sling, therefore, have consented her for a posterior colporrhaphy with mid-urethral retropubic sling and cystoscopy with risks discussed including bleeding; infection; injury to bowel, bladder, blood vessels or other organs; risk of thromboembolic event; risk of anesthesia; risk of urinary retention and voiding disk dysfunction as well as risk of sexual discomfort. She understands that there is approximately 30% risk of her going home with a catheter either due to a bladder perforation or to urinary retention postoperatively. Understanding all these risks, she does desire to proceed. DESCRIPTION OF PROCEDURE: With the patient in dorsal lithotomy position, under adequate general LMA anesthesia, the abdomen was prepped with chlorhexidine. The perineum and vagina were prepped with Betadine and draped in usual fashion for pelvic surgery. SCDs were in place. Vernon catheter had been placed. She received 2 g of Ancef IV. An appropriate time-out was held. Attention was first turned to the rectocele. The perineum was well supported. The rectocele started approximately 1.5 cm internal to the introitus. At this point, an Allis clamp was placed and hydrodissection was performed. A 15 blade scalpel was then used to incise in the midline. Metzenbaum scissors were used to undermine the vaginal mucosa up to the level of the start of the enterocele. The muscularis layer was then . The enterocele was identified. A pursestring suture was placed through the anterior muscularis layer circumferentially, closing the rectocele in a pursestring fashion. A second pursestring was placed over the top and the remaining muscularis layer was reapproximated in the midline using a running mattress suture of 0 Polysorb. The vaginal mucosa was reapproximated using a running-lock suture of 0 Polysorb. Attention was then turned to the anterior compartment where the pubic symphysis was palpated. Note was made that there was significant diastasis of the pubic symphysis and they were not completely symmetric with the left slightly displaced cephalad from the right side and approximately at least a 0.5 cm separation at the pubic symphysis. The midline was noted 2 cm cephalad from the pubic symphysis and 1 cm to the right and left. Markings were made. Using 0.25% Marcaine mixed 1:1 with 1% lidocaine with epinephrine mixed 1:1 with normal saline, hydrodissection was performed both in the subcutaneous tissue proceeding in the retropubic area and stab incisions were made at the markings 1 cm off midline on the right and the left using an 11 blade scalpel. The weighted speculum was then placed posteriorly and the Vernon bulb was palpated. The urethra was palpated to identify the length of the mid urethra approximately 1 cm cephalad from the urethral meatus. Allis clamp was placed. Hydrodissection was performed using the 0.25% Marcaine with 1% lidocaine with epinephrine diluted 1:1 with normal saline in the vaginal mucosa and then proceeding toward the pubic rami on the right and the left. A midline incision was made with a 15 blade scalpel starting at the Allis clamp through the vaginal mucosa. The edges were then grasped with an Allis clamp. Metzenbaum scissors were then used to dissect laterally toward the pubic rami on the right and the left. The bladder was completely drained. A catheter guide was placed into the bladder. The bladder was retracted towards the left and the Advantage Fit retropubic mid-urethral sling device was prepared and the needle was directed into the right side of the vaginal mucosa, aiming toward the ipsilateral midclavicular line of the patient until the endopelvic fascia had been pierced. The patient was in flat position. At this point, the arm was dropped until the posterior aspect of the pubic symphysis was palpated and aiming toward the previously made skin incision, the needle was passed through to the skin. The blue sheath was grasped and this was released from the handle. Cystoscopy was then utilized using sterile water as a distending medium. 500 mL was instilled and careful inspection of the bladder mucosa revealed no penetration of the bladder mucosa and no evidence of any trauma. Therefore, the blue sheath was pulled through and cut from the sling, which was clamped with a hemostat. This process was repeated on the opposite side. Again, the bladder was drained. The catheter guide was placed. The bladder was retracted to the right as the sling was placed to in the left side aiming toward the ipsilateral midclavicular line until the endopelvic fascia was pierced and then following immediately posterior to the pubic ramus, the pubic symphysis, to the previously made incision. After the handle was removed and the blue sheath was retained, the cystoscopy was performed. Again, there was no evidence of any trauma. The bladder was left slightly full with approximately 300 mL and the clear sheath was grasped with a hemostat and the sling was positioned appropriately in the mid urethral position. The blue tab was cut and removed with a scissor between the urethra and the tape. The sheath of the sling was removed and the suprapubic pressure was performed and there was no leakage. Therefore, the tape was trimmed beneath the level of the skin in the suprapubic region. The skin was closed with Dermabond. The vaginal mucosa was closed with a running-lock suture of 3-0 Vicryl and a 16-Georgian catheter was placed without any difficulty or resistance and the vaginal packing was placed. Vernon catheter was replaced and placed to a bag. She will undergo a voiding trial prior to discharge. Final sponge, needle, and instrument count were reported as correct. There were no known complications. The patient was transferred to Recovery in good condition. MEDARDO PINEDA /[id number]
== END 2020-01-05 15:55 | disposition home or self-care (01) ==
LOC: MW.SDS 08:45
PROVIDERS: ATTEND Obstetrics & Gynecology
DX: N39.46 Mixed incontinence (principal); N81.6 Rectocele; F32.9 Major depressive disorder, single episode, unspecified; E78.00 Pure hypercholesterolemia, unspecified; I10 Essential (primary) hypertension; Z88.2 Allergy status to sulfonamides; Z88.5 Allergy status to narcotic agent; Z79.899 Other long term (current) drug therapy; Z88.8 Allergy status to other drugs, medicaments and biological substances
CPT/HCPCS: 57250; 57288; A9270; J0131; J0690; J1940; J2001; J2250; J2405; J2704; J3010; J3490; J7120; 00942; J1885

== ENCOUNTER 2022-07-28 10:26 | Emergency (ER) | payer MEDICARE, OTHER ==
[2022-07-28 13:21] VITALS: BP 122/75; PULSE 68
== END 2022-07-28 13:20 | disposition home or self-care (01) ==
LOC: MW.ED 10:26
DX: S00.11XA Contusion of right eyelid and periocular area, initial encounter (principal); S00.83XA Contusion of other part of head, initial encounter; S60.221A Contusion of right hand, initial encounter; S30.0XXA Contusion of lower back and pelvis, initial encounter; I10 Essential (primary) hypertension; K21.9 Gastro-esophageal reflux disease without esophagitis; M19.90 Unspecified osteoarthritis, unspecified site; E66.9 Obesity, unspecified; Z88.6 Allergy status to analgesic agent; Z88.5 Allergy status to narcotic agent; Z88.8 Allergy status to other drugs, medicaments and biological substances; Z88.2 Allergy status to sulfonamides; Z68.30 Body mass index [BMI] 30.0-30.9, adult; Z79.82 Long term (current) use of aspirin; W01.0XXA Fall on same level from slipping, tripping and stumbling without subsequent striking against object, initial encounter; Y93.K1 Activity, walking an animal
CPT/HCPCS: 70450; 70450-26; 72170; 72170-26; 73130-26-RT; 73130-RT; 99284

== ENCOUNTER 2024-05-31 09:19 | Emergency (ER) | payer MEDICARE, OTHER ==
[2024-05-31] MEDS: Diphtheria,Pertussis(Acell),Tetanus Vaccine 0.5 ML Syringe IM ONE (11:43)
[2024-05-31 11:46] VITALS: BP 129/72; PULSE 64
== END 2024-05-31 11:46 | disposition home or self-care (01) ==
LOC: MW.ED 09:19
DX: S06.0X1A Concussion with loss of consciousness of 30 minutes or less, initial encounter (principal); S01.81XA Laceration without foreign body of other part of head, initial encounter; S60.221A Contusion of right hand, initial encounter; I10 Essential (primary) hypertension; E78.00 Pure hypercholesterolemia, unspecified; K21.9 Gastro-esophageal reflux disease without esophagitis; Z88.6 Allergy status to analgesic agent; Z88.5 Allergy status to narcotic agent; Z88.2 Allergy status to sulfonamides; Z88.8 Allergy status to other drugs, medicaments and biological substances; Z79.899 Other long term (current) drug therapy; Z79.82 Long term (current) use of aspirin; Z23 Encounter for immunization; W01.0XXA Fall on same level from slipping, tripping and stumbling without subsequent striking against object, initial encounter; Y93.K1 Activity, walking an animal
CPT/HCPCS: 70450; 70450-26; 71046; 71046-26; 72125; 72125-26; 731102650; 73110-50; 731302650; 73130-50; 90471; 99284; 99284-25